=== PATIENT | male | born 1970 | race Caucasian/White ===

== ENCOUNTER 2017-09-24 22:45 | Emergency (ER) | payer SELFPAY ==
[2017-09-24 23:36] LABS: Amphetamine Screen,Urine Not Detected (NotDetected); Barbiturate Screen,Urine Not Detected (NotDetected); Benzodiazepines Screen,Urine Not Detected (NotDetected); Cocaine Screen,Urine Not Detected (NotDetected); Methadone Screen, Urine Not Detected (NotDetected); Opiate Screen,Urine Not Detected (NotDetected); Oxycodone Screen, Urine Not Detected (NotDetected); Phencyclidine Screen,Urine Not Detected (NotDetected); Tricyclic Antidepressant,Urine Not Detected (NotDetected); Urn Cannabinoid Scrn Detected (NotDetected)
--- NOTE | 2017-09-24 23:52 | ED ---
General Adult HPI - General Source: patient Mode of arrival: EMS Limitations: no limitations <Bryanna Tamayo - Last Filed: 09/25/17 07:57> <Vega Shipman - Last Filed: 09/25/17 09:54> - General Chief complaint: Psychiatric Symptoms Stated complaint: SUICIDAL Time Seen by Provider: 09/24/17 22:58 - History of Present Illness Initial comments: Don Shepherd is a 47-year-old gentleman who is brought to the ED today for suicidal thoughts. states that he got in an argument with his , he been drinking alcohol and he said he was unhappy with the way his life is going and he just wanted to . He told EMS this and they transported to the ER for psychiatric evaluation. Patient denies any psychiatric history history of psychiatric hospitalization. He denies any previous suicide attempts. He denies having any firearms in the home. Does admit to occasional alcohol drinking. (Bryanna Tamayo) - Related Data Home Medications Medication Instructions Recorded Confirmed amLODIPine [Norvasc] 10 mg PO DAILY 09/24/17 09/24/17 Allergies Allergy/AdvReac Type Severity Reaction Status Date / Time bee venom protein (honey bee) Allergy Swelling Verified 09/24/17 22:56 Review of Systems ROS Other: All systems not noted in ROS Statement are negative. <Bryanna Tamayo - Last Filed: 09/25/17 07:57> ROS Other: All systems not noted in ROS Statement are negative. <Vega Shipman - Last Filed: 09/25/17 09:54> ROS Statement: Those systems with pertinent positive or pertinent negative responses have been documented in the HPI. Past Medical History Past Medical History: Asthma, COPD, Hypertension Additional Past Medical History / Comment(s): pt does not know what his home medications are History of Any Multi-Drug Resistant Organisms: None Reported Past Surgical History: No Surgical Hx Reported Past Psychological History: Anxiety, Depression Smoking Status: Current every day smoker Past Alcohol Use History: Abuse, Daily Past Drug Use History: Marijuana <Bryanna Tamayo - Last Filed: 09/25/17 07:57> General Exam Limitations: no limitations <Bryanna Tamayo - Last Filed: 09/25/17 07:57> Vital Signs 09/25/17 09/25/17 09/25/17 00:06 00:46 07:44 Temperature 97.7 F Pulse Rate 99 Respiratory 17 17 18 Rate Blood Pressure 112/73 O2 Sat by Pulse 99 Oximetry Medical Decision Making <Bryanna Tamayo - Last Filed: 09/25/17 07:57> <Vega Shipman - Last Filed: 09/25/17 09:54> - Medical Decision Making Patient was seen by mental health services who does recommend discharge and follow-up and did provide follow-up information. Patient reevaluated and resting comfortably in bed. Patient denies suicidal ideation and does contract for safety. (Vega Shipman) - Lab Data Lab Results 09/24/17 Range/Units 22:51 Urine Opiates Screen Not Detected (NotDetected) Ur Oxycodone Screen Not Detected (NotDetected) Urine Methadone Screen Not Detected (NotDetected) Ur Propoxyphene Screen Not Detected (NotDetected) Ur Barbiturates Screen Not Detected (NotDetected) U Tricyclic Antidepress Not Detected (NotDetected) Ur Phencyclidine Scrn Not Detected (NotDetected) Ur Amphetamines Screen Not Detected (NotDetected) U Methamphetamines Scrn Not Detected (NotDetected) U Benzodiazepines Scrn Not Detected (NotDetected) Urine Cocaine Screen Not Detected (NotDetected) U Marijuana (THC) Screen Detected H (NotDetected) Disposition <Bryanna Tamayo P - Last Filed: 09/25/17 07:57> Is patient prescribed a controlled substance at d/c from ED?: No Time of Disposition: 09:54 <Vega Shipman - Last Filed: 09/25/17 09:54> Clinical Impression: Depression Disposition: HOME SELF-CARE Condition: Stable Instructions: Depression (ED), Suicide Prevention for Adults (ED), Abuse of Alcohol (ED) Additional Instructions: Please follow-up with primary care physician in the next couple days for recheck. Please also follow-up with mental services as directed. Return for thoughts of self-harm, worsening symptoms or other concerns. Discontinue alcohol use. Referrals: Rory Cramer MD [Primary Care Provider] - 1-2 days
[2017-09-25] MEDS ORDERED: LORazepam 1 MG TAB PO STA (01:32)
[2017-09-25 10:48] VITALS: BP 150/74; PULSE 78; RESP 16; TEMP 97.8
== END 2017-09-25 10:47 | disposition home or self-care (01) ==
LOC: EC 22:45
DX: F32.9 Major depressive disorder, single episode, unspecified (principal); F10.129 Alcohol abuse with intoxication, unspecified; R45.1 Restlessness and agitation; I10 Essential (primary) hypertension; F17.200 Nicotine dependence, unspecified, uncomplicated; Z91.018 Allergy to other foods; Z79.899 Other long term (current) drug therapy
CPT/HCPCS: 80306; 82075; 99285

== ENCOUNTER → 2023-06-09 | Outpatient (CLI) | payer OTHER ==
[2023-06-09 09:03] LABS: INR 1.3 (<1.2); Partial Thromboplastin Time 30.5 sec (22.0-30.0); Prothrombin Time 14.1 sec (10.0-12.5)
[2023-06-09 09:11] LABS: African American GFR (CKD) >90 (>60 ml/min/1.73 sqM); Anion Gap 8 mmol/L; Blood Urea Nitrogen 7 mg/dL (9-20); Carbon Dioxide 23 mmol/L (22-30); Chloride 109 mmol/L (98-107); Non-African American GFR(CKD) >90 (>60 ml/min/1.73 sqM); Potassium 3.8 mmol/L (3.5-5.1); Sodium 140 mmol/L (137-145)
[2023-06-09 09:24] LABS: Basophils % (A) 1 %; Eosinophils # (A) 0.1 k/uL (0-0.7); Eosinophils % (A) 3 %; HCT 32.9 % (39.0-53.0); HGB 10.3 gm/dL (13.0-17.5); Hypochromasia Slight; Lymphocytes # (A) 1.3 k/uL (1.0-4.8); Lymphocytes % (A) 25 %; MCH 31.1 pg (25.0-35.0); MCHC 31.2 g/dL (31.0-37.0); MCV 99.5 fL (80.0-100.0); Mean Platelet Volume 8.7; Monocytes # (A) 0.3 k/uL (0-1.0); Monocytes % (A) 5 %; Neutrophils # (A) 3.5 k/uL (1.3-7.7); Neutrophils % (A) 67 %; Platelet Count 158 k/uL (150-450); RBC 3.31 m/uL (4.30-5.90); RDW 13.2 % (11.5-15.5); WBC 5.3 k/uL (3.8-10.6)
== END | disposition home or self-care (01) ==
LOC: LABWHC1 08:01
PROVIDERS: ATTEND Nurse Practitioner Family
DX: R80.9 Proteinuria, unspecified (principal)
CPT/HCPCS: 36415; 80051; 82565; 84520; 85025; 85610; 85730; 86850; 86900; 86901

== ENCOUNTER 2023-06-10 08:09 | Day surgery (SDC) | payer OTHER ==
[2023-06-10] MEDS: ALPRAZolam 0.5 MG TAB PO STA (09:09)
[2023-06-10] MEDS: DESMOPRESSIN ACETATE 24 MCG in SODIUM CHLORIDE 0.9% 50 ML IVPB ONE (09:15)
[2023-06-10 09:34] VITALS: RESP 16; TEMP 97.8
[2023-06-10] MEDS: HYDROmorphone 0.5 MG/0.5 ML SYRINGE IVP STA (09:54)
[2023-06-10] MEDS ORDERED: HYDROcodone/APAP 5-325MG 1 EACH TAB PO PRN (10:57)
--- NOTE | 2023-06-10 11:52 | CT ---
EXAMINATION TYPE: CT biopsy renal LT DATE OF EXAM: 06/10/2023 COMPARISON: NONE HISTORY: PROTEINURIA, UNSPECIFIED. Left kidney bx CT DLP: 2565 mGycm The procedure was explained to the patient. The risks, complications, benefits, and alternatives wer e discussed and any questions were answered. Informed consent was obtained. Patient was placed pron e on the CT table and prepped and draped in the usual sterile fashion. Utilizing CT guidance, an 18 gauge core biopsy needle access into the left renal cortex was achieved and three 18 gauge core samples were obtained. The patient was stable throughout the procedure and r emained stable upon discharge. IMPRESSION: Successful 18 gauge core biopsy of the kidney function.
[2023-06-10 15:31] VITALS: BP 93/57; PULSE 81
== END 2023-06-10 14:52 | disposition home or self-care (01) ==
LOC: RADPROMAIN 08:09
PROVIDERS: ATTEND Internal Medicine Nephrology
DX: R80.9 Proteinuria, unspecified (principal)
CPT/HCPCS: 36415; 50200; 77012; J2597; J1170

== ENCOUNTER → 2023-09-29 | Outpatient (CLI) | payer OTHER ==
--- NOTE | 2023-10-29 08:56 | US ---
EXAMINATION TYPE: US abdomen complete DATE OF EXAM: 09/29/2023 COMPARISON: NONE CLINICAL INDICATION: Male, 53 years old with history of Pain x 4 months, Diarrhea, constipation, and pancreatitis TECHNIQUE: Multiple sonographic images of the abdomen are obtained. FINDINGS: EXAM MEASUREMENTS: Liver Length: 16.4 cm Gallbladder Wall: 0.3 cm CBD: 0.4 cm Spleen: 14.9 cm Right Kidney: 10.4 x 4.0 x 3.3 cm Left Kidney: 10.8 x 4.2 x 5.2 cm [employer] NOTES: Pancreas: wnl Liver: Portal vein = 15 mm Gallbladder: Stone seen Evidence for sonographic Grande's sign: No CBD: wnl Spleen: Enlarged Right Kidney: wnl Left Kidney: wnl Upper IVC: wnl Abd Aorta: wnl The liver is homogenous. The intrahepatic portion of the IVC and proximal abdominal aorta are within normal limits. Cholelithiasis demonstrated. No wall thickening or surrounding fluid. Negative sonogr aphic Grande's sign. Common bile duct is unremarkable. The visualized portions of the pancreas are h omogenous. The spleen is mildly enlarged. Kidneys are symmetric and free of hydronephrosis. No jaylen al lesions are seen. IMPRESSION: 1. Cholelithiasis without ultrasound evidence for acute cholecystitis. 2. Mild splenomegaly. [facility], , 10/29/2023 8:53 AM
== END | disposition home or self-care (01) ==
LOC: RADUSWWP 13:35
PROVIDERS: ATTEND Nurse Practitioner Family
DX: K70.31 Alcoholic cirrhosis of liver with ascites (principal); R10.84 Generalized abdominal pain; K80.20 Calculus of gallbladder without cholecystitis without obstruction; R16.1 Splenomegaly, not elsewhere classified
CPT/HCPCS: 76700